=== PATIENT | male | born 1995 | race Caucasian/White ===

== ENCOUNTER 2019-01-16 17:35 | Emergency (ER) | payer OTHER ==
[2019-01-16 18:24] VITALS: BP 147/85
--- NOTE | 2019-01-16 18:43 | ED ---
Throat Pain/Nasal Congestion - HPI Summary HPI Summary: 23 yr old with cold sore on the lower left lip; onset 2-3 days. He has burning pain and blistering to the lower lip. No sore throat, no fever or chills. He has gotten frequent colds sores in his life. he states last year a pill help clear up his symptoms. He has no other complaints. - History of Current Complaint Chief Complaint: UCSkin Time Seen by Provider: 01/16/19 18:33 - Allergies/Home Medications Allergies/Adverse Reactions: Allergies Allergy/AdvReac Type Severity Reaction Status Date / Time No Known Allergies Allergy Verified 01/16/19 18:18 Home Medications: Home Medications Divalproex Sodium [Depakote ER] 500 mg PO BID 01/16/19 [History Confirmed ] PMH/Surg Hx/FS Hx/Imm Hx Infectious Disease History: No Infectious Disease History: Denies: Traveled Outside the [place] in Last 30 Days - Family History Known Family History: Positive: None - Social History Occupation: Student Alcohol Use: Occasionally Substance Use Type: Reports: None Smoking Status (MU): Never Smoked Tobacco Review of Systems Constitutional: Negative Positive: Other - bilster lower left lip All Other Systems Reviewed And Are Negative: Yes Physical Exam Triage Information Reviewed: Yes Vital Signs On Initial Exam: Initial Vitals Temp Pulse Resp BP Pulse Ox 98.2 F 62 18 147/85 100 01/16/19 18:19 01/16/19 18:19 01/16/19 18:19 01/16/19 18:19 01/16/19 18:19 Vital Signs Reviewed: Yes Appearance: Positive: Well-Appearing, No Pain Distress Skin: Positive: Warm Head/Face: Positive: Normal Head/Face Inspection Eyes: Positive: EOMI, JA ENT: Positive: Normal ENT inspection, Pharynx normal, Other - lower left lip with bilster on a red base consistent with herpes outbreak. Neck: Positive: Nontender Respiratory/Lung Sounds: Positive: Clear to Auscultation, Breath Sounds Present Cardiovascular: Positive: RRR. Negative: Murmur Abdomen Description: Negative: Distended Musculoskeletal: Positive: Strength/ROM Intact Neurological: Positive: Sensory/Motor Intact, Alert, Oriented to Person Place, Time, CN Intact II-III, Normal Gait, Speech Normal Diagnostics - Vital Signs Vital Signs Temp Pulse Resp BP Pulse Ox 01/16/19 18:19 98.2 F 62 18 147/85 100 - Laboratory Lab Statement: Any lab studies that have been ordered have been reviewed, and results considered in the medical decision making process. EENT Course/Dx - Course Course Of Treatment: 23 yr old with oral herpes. DC home on valtrex. - Diagnoses Provider Diagnoses: Herpes labialis, Hypertension Discharge ED - Sign-Out/Discharge Documenting (check all that apply): Patient Departure All imaging exams completed and their final reports reviewed: No Studies - Discharge Plan Condition: Good Disposition: HOME Prescriptions: ValACYclovir (*) [Valtrex 1 GM(*)] 1 gm PO TID #21 tab Patient Education Materials: Oral Herpes Simplex Virus Infections (ED), Hypertension (ED) Referrals: No Primary Care Phys,NOPCP [Primary Care Provider] - [facility] [Outside] - 3 Days - Billing Disposition and Condition Condition: GOOD Disposition: Home
== END 2019-01-16 18:45 | disposition home or self-care (01) ==
LOC: UCCORT 17:35
DX: B00.1 Herpesviral vesicular dermatitis (principal); I10 Essential (primary) hypertension
CPT/HCPCS: 99202; G0463

== ENCOUNTER 2019-03-28 21:31 | Emergency (ER) | payer OTHER ==
[2019-03-28 21:55] VITALS: BP 120/84
--- NOTE | 2019-03-28 22:01 | UC ---
Throat Pain/Nasal Venkat HPI - HPI Summary HPI Summary: 23-year-old male who has had a sore throat for 1-1/2 days. He denies any fever or any other symptoms. - History of Current Complaint Chief Complaint: UCRespiratory Stated Complaint: SORE THROAT, COUGH Time Seen by Provider: 03/28/19 21:53 Hx Obtained From: Patient Onset/Duration: Gradual Onset Severity: Mild Pain Intensity: 9 Cough: Nonproductive - Allergies/Home Medications Allergies/Adverse Reactions: Allergies Allergy/AdvReac Type Severity Reaction Status Date / Time No Known Allergies Allergy Verified 03/28/19 21:48 Home Medications: Home Medications Acetaminophen [Acetaminophen Extra Strength] 1,000 mg PO PRN 03/28/19 [History] PMH/Surg Hx/FS Hx/Imm Hx Previously Healthy: Yes Psychological History: Depression - Surgical History Surgical History: None - Family History Known Family History: Positive: None - Social History Alcohol Use: Occasionally Substance Use Type: None Smoking Status (MU): Never Smoked Tobacco Review of Systems All Other Systems Reviewed And Are Negative: Yes ENT: Positive: Sore Throat Is Patient Immunocompromised?: No Physical Exam Triage Information Reviewed: Yes Appearance: Well-Appearing, No Pain Distress, Well-Nourished Vital Signs: Initial Vital Signs Temp 100.3 F 03/28/19 21:50 Pulse 89 03/28/19 21:50 Resp 16 03/28/19 21:50 BP 120/84 03/28/19 21:50 Pulse Ox 99 03/28/19 21:50 Vital Signs Reviewed: Yes Eyes: Positive: Conjunctiva Clear ENT: Positive: Hearing grossly normal, Pharyngeal erythema - Very minimal pharyngeal erythema., TMs normal, Uvula midline Neck: Positive: Supple, Nontender, No Lymphadenopathy Respiratory: Positive: Lungs clear, Normal breath sounds, No respiratory distress, No accessory muscle use Cardiovascular: Positive: RRR, No Murmur, Pulses Normal, Brisk Capillary Refill Musculoskeletal Exam: Normal Neurological Exam: Normal Psychological Exam: Normal Skin Exam: Normal Throat Pain/Nasal Course/Dx - Course Course Of Treatment: Rapid strep test: Negative Patient is comfortable here and does not appear ill. - Differential Dx/Diagnosis Provider Diagnosis: Pharyngitis Discharge ED - Sign-Out/Discharge Documenting (check all that apply): Patient Departure All imaging exams completed and their final reports reviewed: No Studies - Discharge Plan Condition: Good Disposition: HOME Patient Education Materials: Pharyngitis (ED) Referrals: [facility] [Outside] No Primary Care Phys,NOPCP [Primary Care Provider] - Additional Instructions: Increase fluids, warm saltwater gargles, throat lozenges. [facility] no improvement in 3 or 4 days. - Billing Disposition and Condition Condition: GOOD Disposition: Home - Attestation Statements Provider Attestation: This patient was not seen by me. I was available for consult. Chart reviewed. CHRISS
== END 2019-03-28 22:15 | disposition home or self-care (01) ==
LOC: UCCORT 21:31
DX: J02.9 Acute pharyngitis, unspecified (principal)
CPT/HCPCS: 87651; 99211; G0463